=== PATIENT | male | born 1980 | race Caucasian/White ===

== ENCOUNTER 2023-04-01 11:45 | Observation (INO) | payer BC ==
[2023-04-01 12:35] LABS: #Eosinphils 0.1 thou/uL (0.0-0.7); #Monocytes 1.3 thou/uL (0.11-0.59); #Neutrophils 7.6 thou/uL (1.40-6.50); %Basophils 0.2 % (0.0-1.0); %Eosinophils 0.8 % (0.0-10.0); %Lymphocytes 20.1 % (21.0-51.0); %Monocytes 11.3 % (0.0-10.0); %Neutrophils 67.3 % (42.0-75.0); Hematocrit 47.1 % (42.0-52.0); Hemoglobin 15.4 g/dL (14.0-18.0); Mean Corpuscular HGB CONC 32.7 g/dL (32.0-36.0); Mean Corpuscular Hemoglobin 30.1 pg (27.0-31.0); Mean Platelet Volume 10.1 fL (7.4-10.4); Platelet Count 297 10x3/uL (130-400); Red Blood Cell (RBC) Count 5.12 mill/uL (4.70-6.10); White Blood Cell (WBC) Count 11.3 10x3/uL (4.8-10.8)
[2023-04-01 13:05] LABS: ALT (SGPT) 66 U/L (8-55); AST (SGOT) 31 U/L (5-34); Albumin 4.4 g/dL (3.5-5.0); Alkaline Phosphatase 96 U/L (40-110); Anion Gap 15 mmol/L (10-20); BUN (Urea Nitrogen) 12 mg/dL (8.9-20.6); Bilirubin, Total 0.8 mg/dL (0.2-1.2); Calc. Creatinine Clearance 0 mL/min (70-130); Calcium 8.9 mg/dL (7.8-10.44); Carbon Dioxide 24 mmol/L (22-29); Chloride 102 mmol/L (98-107); Estimated GFR 85; Globulin 2.9 g/dL (2.4-3.5); Glucose 143 mg/dL (70-105); Lipase 30 U/L (8-78); Potassium 4.3 mmol/L (3.5-5.1); Protein, Total 7.3 g/dL (6.0-8.3); Sodium 137 mmol/L (136-145)
[2023-04-01] MEDS ORDERED: Morphine 4 MG/ML VIAL ONE (14:40)
[2023-04-01] MEDS ORDERED: Ondansetron PF 4 MG/2 ML Vial ONE (14:40)
[2023-04-01] MEDS ORDERED: Piperacillin/Tazobactam 4.5 GM VIAL ONE (14:40)
[2023-04-01] MEDS ORDERED: Morphine 4 MG/ML VIAL SLOW IVP PRN (17:48)
[2023-04-01] MEDS ORDERED: Morphine 2 MG/ML VIAL SLOW IVP PRN (17:48)
[2023-04-01] MEDS ORDERED: Ondansetron PF 4 MG/2 ML Vial IVP PRN (17:48)
[2023-04-01] MEDS ORDERED: Promethazine HCl 25 MG/ML VIAL IM PRN (17:48)
[2023-04-01] MEDS: D5 1/2 NS w/20 mEq KCL 1,000 ML IV SCH (20:27)
[2023-04-01] MEDS: Piperacillin/Tazobactam 3.375 GM in Sodium Chloride 0.9% 100 ML IVPB SCH (20:28)
[2023-04-01] MEDS: Ketorolac Tromethamine 30 MG/ML VIAL IVP SCH ×2 (22:00→22:22)
[2023-04-01] MEDS: Famotidine/PF 20 mg/2ml Vial SLOW IVP SCH (22:24)
[2023-04-01 22:36] VITALS: BMI 31.8
[2023-04-02] MEDS: D5 1/2 NS w/20 mEq KCL 1,000 ML IV SCH ×2 (02:57→11:56)
[2023-04-02] MEDS: Piperacillin/Tazobactam 3.375 GM in Sodium Chloride 0.9% 100 ML IVPB SCH ×2 (05:34→14:03)
[2023-04-02] MEDS: Ketorolac Tromethamine 30 MG/ML VIAL IVP SCH ×2 (05:38→13:36)
[2023-04-02 06:15] LABS: #Eosinphils 0.2 thou/uL (0.0-0.7); #Monocytes 1.2 thou/uL (0.11-0.59); #Neutrophils 4.6 thou/uL (1.40-6.50); %Basophils 0.2 % (0.0-1.0); %Eosinophils 1.8 % (0.0-10.0); %Lymphocytes 27.4 % (21.0-51.0); %Monocytes 14.9 % (0.0-10.0); %Neutrophils 55.5 % (42.0-75.0); Hematocrit 43.5 % (42.0-52.0); Hemoglobin 14.6 g/dL (14.0-18.0); Mean Corpuscular HGB CONC 33.6 g/dL (32.0-36.0); Mean Corpuscular Hemoglobin 30.7 pg (27.0-31.0); Mean Corpuscular Volume 91.6 fl (78.0-98.0); Mean Platelet Volume 10.2 fL (7.4-10.4); Platelet Count 244 10x3/uL (130-400); RBC Distribution Width 12.9 % (11.5-14.5); Red Blood Cell (RBC) Count 4.75 mill/uL (4.70-6.10); White Blood Cell (WBC) Count 8.4 10x3/uL (4.8-10.8)
[2023-04-02 06:44] LABS: Bacteria/HPF None Seen HPF (None Seen); Bilirubin Negative (Negative); Blood, Urine Negative (Negative); Clarity Clear (Clear); Glucose, Urine (Dipstick) Normal (Negative); Ketone, Urine Negative (Negative); Leukocyte Negative Leu/uL (Negative); Nitrite Negative (Negative); Protein, Urine (Dipstick) Negative (Neg-Trace); RBC/HPF 0-3 HPF (0-3); Specific Gravity, Urine 1.021 (1.002-1.036); Squamous Epithelial None Seen HPF (0-3); WBC/HPF 0-3 HPF (0-3)
[2023-04-02 06:50] LABS: ALT (SGPT) 50 U/L (8-55); AST (SGOT) 23 U/L (5-34); Albumin 3.9 g/dL (3.5-5.0); Alkaline Phosphatase 83 U/L (40-110); Anion Gap 11 mmol/L (10-20); BUN (Urea Nitrogen) 10 mg/dL (8.9-20.6); Bilirubin, Total 0.9 mg/dL (0.2-1.2); Calc. Creatinine Clearance 150 mL/min (70-130); Calcium 8.7 mg/dL (7.8-10.44); Carbon Dioxide 27 mmol/L (22-29); Chloride 101 mmol/L (98-107); Estimated GFR 98; Globulin 2.8 g/dL (2.4-3.5); Glucose 109 mg/dL (70-105); Potassium 4.2 mmol/L (3.5-5.1); Protein, Total 6.7 g/dL (6.0-8.3); Sodium 135 mmol/L (136-145)
[2023-04-02] MEDS: Famotidine/PF 20 mg/2ml Vial SLOW IVP SCH (09:01)
[2023-04-02] MEDS ORDERED: Bupivacaine PF 0.5% 30 ML VIAL ONE (12:01)
[2023-04-02] MEDS ORDERED: EPINEPHrine 1 MG/ML AMP ONE (12:01)
[2023-04-02] MEDS ORDERED: Piperacillin/Tazobactam 3.375 GM VIAL ONE (12:08)
[2023-04-02] MEDS ORDERED: Sodium Chloride 0.9% 100 ML ONE (12:08)
[2023-04-02] MEDS ORDERED: fentaNYL PF 100 MCG/2 ML SYRINGE ONE ×2 (12:10→13:17)
[2023-04-02] MEDS ORDERED: NEOSTIGMINE 3 MG/3 ML SYR 3 MG/3 ML SYRINGE ONE (12:19)
[2023-04-02] MEDS ORDERED: Rocuronium Bromide 10 MG/ML (10ML VIAL) ONE (12:19)
[2023-04-02] MEDS ORDERED: PROPOFOL 200 MG/20 ML VIAL ONE (12:19)
[2023-04-02] MEDS ORDERED: Dexamethasone 20 MG/5 ML VIAL ONE (12:19)
[2023-04-02] MEDS ORDERED: Ondansetron PF 4 MG/2 ML Vial ONE (12:19)
[2023-04-02] MEDS ORDERED: Lidocaine 1% PF 5 ML VIAL ONE (12:19)
[2023-04-02] MEDS ORDERED: Glycopyrrolate 0.2 MG/ML 5 ML SYRINGE ONE (12:19)
[2023-04-02] MEDS ORDERED: Ketorolac Tromethamine 30 MG/ML VIAL ONE (12:19)
[2023-04-02] MEDS ORDERED: Rocuronium Bromide 50 MG/5 ML VIAL ONE (12:38)
[2023-04-02] MEDS ORDERED: HYDROcodone/Acetaminophen 5/325 mg Tablet PO PRN ×2 (13:35)
[2023-04-02 16:37] VITALS: BP 110/70; TEMP 98.6
== END 2023-04-02 17:21 | disposition home or self-care (01) ==
LOC: ERS 11:45 → SUATTDRO 11:45 → T4-B 17:42
PROVIDERS: ADMIT Surgery; ATTEND Surgery
PROC: 0FT44ZZ Resection of Gallbladder, Percutaneous Endoscopic Approach (ICD-10-PCS; principal; 2023-04-02)
DX: K80.12 Calculus of gallbladder with acute and chronic cholecystitis without obstruction (principal); E66.01 Morbid (severe) obesity due to excess calories; Z68.31 Body mass index [BMI] 31.0-31.9, adult; Z88.5 Allergy status to narcotic agent
CPT/HCPCS: 36415; 76705; 80053; 81001; 83690; 85025; 88304; 96365; 96375; 96376; C1889; G0378; J0171; J1100; J1885; J2270; J2405; J2543; J2704; J3480; J3490; S0020; S0028